=== PATIENT | male | born 1995 | race Caucasian/White ===

== ENCOUNTER 2016-10-04 06:39 | Emergency (ER) | payer MEDICAID ==
[~2016-10-04] VITALS: Ht 180.3 cm; Wt 75.5 kg
[2016-10-04 06:41] VITALS: BP 128/79
[2016-10-04] MEDS ORDERED: KETOROLAC 30 MG/1 ML IM ONE (07:00)
[2016-10-04] MEDS ORDERED: KETOROLAC 30 MG/1 ML ONE (07:54)
== END 2016-10-04 08:05 | disposition home or self-care (01) ==
LOC: ED 07:55
DX: K08.89 Other specified disorders of teeth and supporting structures (principal)
CPT/HCPCS: 96372; 99283; J1885

== ENCOUNTER 2018-03-08 11:13 | Emergency (ER) | payer MEDICAID ==
[~2018-03-08] VITALS: Ht 180.3 cm; Wt 74.0 kg
[2018-03-08 11:48] VITALS: BP 121/76
== END 2018-03-08 12:24 | disposition home or self-care (01) ==
LOC: ED 12:18 → EDBD 12:18 → ED 12:24
DX: L73.9 Follicular disorder, unspecified (principal); F17.200 Nicotine dependence, unspecified, uncomplicated
CPT/HCPCS: 10160; 99284